=== PATIENT | female | born 1990 | race Caucasian/White ===

== ENCOUNTER 2018-09-19 15:46 | Emergency (ER) | payer MEDICAID ==
[2018-09-19 15:52] VITALS: RESP 16
[2018-09-19] MEDS ORDERED: LORazepam 1 MG TAB PO STA (16:38)
--- NOTE | 2018-09-19 16:43 | ED ---
SOB HPI - General Source: patient, RN notes reviewed Mode of arrival: ambulatory Limitations: no limitations <Bartolome Pratt - Last Filed: 09/19/18 16:52> - General Source: family, RN notes reviewed <Cheo Medrano - Last Filed: 09/19/18 18:41> - General Chief Complaint: Shortness of Breath Stated Complaint: YANIV Time Seen by Provider: 09/19/18 16:22 - History of Present Illness Initial Comments: Patient is a pleasant 28-year-old female presenting to the emergency Department with cough and difficulty breathing. Symptoms have been present for several days. Patient has had nonproductive cough. Patient did have some congestion. Patient did have earache however that has resolved. No chest pain. Patient has had some intermittent fevers. Patient states dyspnea has been intermittent. Patient states dyspnea worsened again around a half an hour prior to arrival. (Bartolome Pratt) Medical decision making; this is a 28-year-old female who as noted in the chief complaint started having flu-type symptoms 5 days ago. She's been on both Tamiflu and a Z-Fernando for past 3 days. She has a past history of anxiety for which she takes trazodone on a when necessary the patient's at night. The patient is working plus going to school. Is under great deal stress. Appears to have had a dry hacking cough that led to hyperventilation with numbness and tingling running lips and hands. Labs and normal limits. D-dimer normal. Chest x-ray reviewed by radiologist does show an ammonia in the superior segment of the left lower lobe. On auscultation of lungs was clear. I discussed with the patient switching from azithromycin to the Levaquin. Patient was advised to stay home from work for at least several days to rest. Anxiety coping routines were explained to the patient (Cheo Medrano) - Related Data Previous Rx's Medication Instructions Recorded Levofloxacin [Levaquin] 500 mg PO DAILY #9 tab 09/19/18 Allergies Allergy/AdvReac Type Severity Reaction Status Date / Time No Known Allergies Allergy Verified 09/19/18 15:52 Review of Systems ROS Other: All systems not noted in ROS Statement are negative. Constitutional: Denies: fever Eyes: Denies: eye pain ENT: Denies: ear pain Respiratory: Reports: cough, dyspnea Cardiovascular: Denies: chest pain Endocrine: Denies: fatigue Gastrointestinal: Denies: abdominal pain Genitourinary: Denies: dysuria Musculoskeletal: Denies: back pain Skin: Denies: rash Neurological: Denies: headache <Bartolome Pratt - Last Filed: 09/19/18 16:52> ROS Other: All systems not noted in ROS Statement are negative. <Cheo Medrano - Last Filed: 09/19/18 18:41> ROS Statement: Those systems with pertinent positive or pertinent negative responses have been documented in the HPI. Review of systems patient denies any headache or visual acuity changes no chest pain she does complain of being short of breath with a dry cough. She also appears to be having some hyperventilation issues. No GI/ problems, patient denies any fever. No significant past medical problems other than anxiety which she for which she takes trazodone at night on a when necessary basis. Patient's surgeries include dental surgery only. Family history includes cancers of breast and esophagus. Patient denies any ALLERGIES nonsmoker, drinks alcohol socially. ( Cheo Medrano) Past Medical History Additional Past Medical History / Comment(s): bronchitis. History of Any Multi-Drug Resistant Organisms: None Reported Past Surgical History: No Surgical Hx Reported Past Psychological History: No Psychological Hx Reported Smoking Status: Never smoker Past Alcohol Use History: None Reported Past Drug Use History: None Reported <Bartolome Pratt - Last Filed: 09/19/18 16:52> General Exam Limitations: no limitations General appearance: alert, in no apparent distress Head exam: Present: atraumatic Eye exam: Present: normal appearance, PERRL ENT exam: Present: normal oropharynx, TM's normal bilaterally Neck exam: Present: normal inspection Respiratory exam: Present: normal lung sounds bilaterally Cardiovascular Exam: Present: regular rate, normal rhythm GI/Abdominal exam: Present: soft. Absent: tenderness Extremities exam: Present: normal inspection. Absent: pedal edema, calf tenderness Neurological exam: Present: alert Psychiatric exam: Present: anxious Skin exam: Present: normal color <Bartolome Pratt - Last Filed: 09/19/18 16:52> <Cheo Medrano - Last Filed: 09/19/18 18:41> - General Exam Comments Initial Comments: General: The patient is awake and alert, patient initially presented hyperventilating. She was given Ativan by Dr. Pratt. After proper 45 minutes to an hour and did seem to help. The patient began to relax. Vital signs showed temperature 90.2 pulse 100 respiratory rate 16 complaint shortness of breath pulse ox on percent room air blood pressure 141/91. Eye: Pupils are equal, round and reactive to light, extra-ocular movements are intact ; there is normal conjunctiva bilaterally. No signs of icterus. Ears, nose, mouth and throat: There are moist mucous membranes and no oral lesions. Neck: The neck is supple, there is no tenderness, no anterior cervical lymphadenopathy , thyroid not enlarged, palpable. Cardiovascular: Tachycardic heart rate of 100. No murmur, rub or gallop is appreciated. Respiratory: Lungs are clear to auscultation, respirations are non-labored, breath sounds are equal. No wheezes, stridor, rales, or rhonchi. Increased respiratory rate secondary to probably anxiety. A dry cough Gastrointestinal: Soft, non-distended, non-tender abdomen without masses or organomegaly noted. There is no rebound or guarding present. No CVA tenderness. Bowel sounds are unremarkable. Back: There is no tenderness to palpation in the midline. There is no obvious deformity. No rashes noted. Musculoskeletal: Normal ROM, no tenderness, There is no pedal edema. There is no calf tenderness or swelling. Sensation intact. Pulses equal bilaterally 2+. Neurological: No neuro deficits Skin: Skin is warm and dry and no rashes or lesions are noted. Psychiatric: Cooperative, past history of mild anxiety and hyperventilation. Prescribed trazodone by her family doctor to help her sleep at night. No complaints of depression. (Cheo Medrano) Course <Bartolome Pratt - Last Filed: 09/19/18 16:52> <Cheo Medrano - Last Filed: 09/19/18 18:41> Vital Signs 09/19/18 09/19/18 15:50 17:52 Temperature 98.2 F Pulse Rate 100 73 Respiratory 16 16 Rate Blood Pressure 141/91 119/74 O2 Sat by Pulse 100 97 Oximetry - Reevaluation(s) Reevaluation #1: 09/19/18 16:44 Influenza testing from 2 days ago is negative 09/19/18 16:44 Case will be endorsed to Dr. Medrano for reevaluation. 09/19/18 16:52 Wells score is 0. Perc negative (Bartolome Pratt) Medical Decision Making - EKG Data -: EKG Interpreted by Me (Normal sinus rhythm 86. TN 112. QRS 112. QT 374. QTC 447. Normal axis.) EKG shows normal: sinus rhythm, QRS complexes (Incomplete right bundle-branch block), ST-T waves <Bartolome Pratt - Last Filed: 09/19/18 16:52> - Lab Data Result diagrams: 09/19/18 17:40 09/19/18 17:40 <Cheo Medrano - Last Filed: 09/19/18 18:41> - Medical Decision Making Medical decision making; is a 28-year-old female who reports she had flu-type symptoms started 5 days ago. States she awakened with a rapid heart rate 160. Saw her family doctor the next day had a flu test done. That same day she was started on Z-Fernando, Tamiflu and Tessalon Perles. The patient reports she does have past history of anxiety issues. And she presents today hyperventilating. The patient states she had a good night last night. Denies fever denies productive cough. Dry hacking cough. Patient had EKG done which showed a heart rate of 86 with normal sinus rhythm with an incomplete right bundle-branch block. Patient was initially seen by Dr. Pratt, he administered Ativan. Chest x-ray was reviewed by radiologist his impression is left lower lobe pneumonia. Normal heart. As read by Dr. Moreno. Patient will have CBC, comp and d-dimer done for further evaluation. Dr. Medrano Labs show white count 6.7 hemoglobin 14 hematocrit of 42 with a potassium 3.8. BUN 12 creatinine 0.71 and GFR greater than 90. Glucose 92. D-dimer normal at 0.4. The patient was feeling much better after the Ativan began affected. She is just generally clearing her throat. We did discuss switching from Z-Fernando to Levaquin to be taken daily for the next 10 days. Strongly advised to stay away from work for several days. If she develops fever chills chest pain to return emergency room. Otherwise follow-up with family physician. (Cheo Medrano) - Lab Data Lab Results 09/19/18 09/19/18 09/19/18 Range/Units 17:40 17:40 17:40 WBC 6.7 (3.8-10.6) k/uL RBC 5.18 (3.80-5.40) m/uL Hgb 14.3 (11.4-16.0) gm/dL Hct 44.4 (34.0-46.0) % MCV 85.8 (80.0-100.0) fL MCH 27.7 (25.0-35.0) pg MCHC 32.3 (31.0-37.0) g/dL RDW 12.5 (11.5-15.5) % Plt Count 231 (150-450) k/uL Neutrophils % 51 % Lymphocytes % 35 % Monocytes % 8 % Eosinophils % 2 % Basophils % 1 % Neutrophils # 3.4 (1.3-7.7) k/uL Lymphocytes # 2.3 (1.0-4.8) k/uL Monocytes # 0.5 (0-1.0) k/uL Eosinophils # 0.1 (0-0.7) k/uL Basophils # 0.0 (0-0.2) k/uL D-Dimer 0.40 (<0.60) mg/L FEU Sodium 144 (137-145) mmol/L Potassium 3.8 (3.5-5.1) mmol/L Chloride 109 H (98-107) mmol/L Carbon Dioxide 21 L (22-30) mmol/L Anion Gap 14 mmol/L BUN 12 (7-17) mg/dL Creatinine 0.71 (0.52-1.04) mg/dL Est GFR (CKD-EPI)AfAm >90 (>60 ml/min/1.73 sqM) Est GFR (CKD-EPI)NonAf >90 (>60 ml/min/1.73 sqM) Glucose 92 (74-99) mg/dL Calcium 10.2 (8.4-10.2) mg/dL Total Bilirubin 0.5 (0.2-1.3) mg/dL AST 25 (14-36) U/L ALT 17 (9-52) U/L Alkaline Phosphatase 63 (38-126) U/L Total Protein 8.2 (6.3-8.2) g/dL Albumin 4.5 (3.5-5.0) g/dL Disposition <Bartolome Pratt - Last Filed: 09/19/18 16:52> Is patient prescribed a controlled substance at d/c from ED?: No Time of Disposition: 18:41 <Cheo Medrano - Last Filed: 09/19/18 18:41> Clinical Impression: Pneumonia, Hyperventilation Disposition: HOME SELF-CARE Condition: Fair Instructions: Community Acquired Pneumonia (ED), Hyperventilation (ED) Additional Instructions: Increase water intake. Use [id number] cough suppressants. Taking medications including trazodone at night as needed. Take Levaquin as directed. Follow-up with your family physician. No work for several days. Prescriptions: Levofloxacin [Levaquin] 500 mg PO DAILY #9 tab Referrals: Desiree Moran DO [Primary Care Provider] - 1-2 days
--- NOTE | 2018-09-19 17:05 | XR ---
EXAMINATION TYPE: XR chest 2V DATE OF EXAM: 09/19/2018 COMPARISON: NONE HISTORY: Short of breath TECHNIQUE: Frontal and lateral views of the chest are obtained. FINDINGS: Heart and mediastinum are normal. There is airspace infiltrate in the superior segment lef t lower lobe. The other lung mathews are clear. Diaphragm is normal. Bony thorax is intact. Pulmonary vascularity is normal. IMPRESSION: Left lower lobe pneumonia. Normal heart.
[2018-09-19 17:49] LABS: Basophils % (A) 1 %; Eosinophils # (A) 0.1 k/uL (0-0.7); Eosinophils % (A) 2 %; HCT 44.4 % (34.0-46.0); HGB 14.3 gm/dL (11.4-16.0); Lymphocytes # (A) 2.3 k/uL (1.0-4.8); Lymphocytes % (A) 35 %; MCH 27.7 pg (25.0-35.0); MCHC 32.3 g/dL (31.0-37.0); MCV 85.8 fL (80.0-100.0); Mean Platelet Volume 7.1; Monocytes # (A) 0.5 k/uL (0-1.0); Monocytes % (A) 8 %; Neutrophils # (A) 3.4 k/uL (1.3-7.7); Neutrophils % (A) 51 %; Platelet Count 231 k/uL (150-450); RBC 5.18 m/uL (3.80-5.40); RDW 12.5 % (11.5-15.5); WBC 6.7 k/uL (3.8-10.6)
[2018-09-19 17:59] LABS: ALT 17 U/L (9-52); AST 25 U/L (14-36); Albumin 4.5 g/dL (3.5-5.0); Alkaline Phosphatase 63 U/L (38-126); Anion Gap 14 mmol/L; Blood Urea Nitrogen 12 mg/dL (7-17); Calcium 10.2 mg/dL (8.4-10.2); Carbon Dioxide 21 mmol/L (22-30); Chloride 109 mmol/L (98-107); Glucose 92 mg/dL (74-99); Potassium 3.8 mmol/L (3.5-5.1); Sodium 144 mmol/L (137-145); Total Bilirubin 0.5 mg/dL (0.2-1.3); Total Protein 8.2 g/dL (6.3-8.2)
[2018-09-19] MEDS ORDERED: LEVOFLOXACIN 500 MG TAB PO STA (18:39)
[2018-09-19 19:07] VITALS: BP 131/78; PULSE 88; TEMP 97.7
--- NOTE | 2018-09-19 19:07 | ED ---
Medical Decision Making - Lab Data Result diagrams: 09/19/18 17:40 09/19/18 17:40 Lab Results 09/19/18 09/19/18 09/19/18 Range/Units 17:40 17:40 17:40 WBC 6.7 (3.8-10.6) k/uL RBC 5.18 (3.80-5.40) m/uL Hgb 14.3 (11.4-16.0) gm/dL Hct 44.4 (34.0-46.0) % MCV 85.8 (80.0-100.0) fL MCH 27.7 (25.0-35.0) pg MCHC 32.3 (31.0-37.0) g/dL RDW 12.5 (11.5-15.5) % Plt Count 231 (150-450) k/uL Neutrophils % 51 % Lymphocytes % 35 % Monocytes % 8 % Eosinophils % 2 % Basophils % 1 % Neutrophils # 3.4 (1.3-7.7) k/uL Lymphocytes # 2.3 (1.0-4.8) k/uL Monocytes # 0.5 (0-1.0) k/uL Eosinophils # 0.1 (0-0.7) k/uL Basophils # 0.0 (0-0.2) k/uL D-Dimer 0.40 (<0.60) mg/L FEU Sodium 144 (137-145) mmol/L Potassium 3.8 (3.5-5.1) mmol/L Chloride 109 H (98-107) mmol/L Carbon Dioxide 21 L (22-30) mmol/L Anion Gap 14 mmol/L BUN 12 (7-17) mg/dL Creatinine 0.71 (0.52-1.04) mg/dL Est GFR (CKD-EPI)AfAm >90 (>60 ml/min/1.73 sqM) Est GFR (CKD-EPI)NonAf >90 (>60 ml/min/1.73 sqM) Glucose 92 (74-99) mg/dL Calcium 10.2 (8.4-10.2) mg/dL Total Bilirubin 0.5 (0.2-1.3) mg/dL AST 25 (14-36) U/L ALT 17 (9-52) U/L Alkaline Phosphatase 63 (38-126) U/L Total Protein 8.2 (6.3-8.2) g/dL Albumin 4.5 (3.5-5.0) g/dL Disposition Clinical Impression: Pneumonia, Hyperventilation Disposition: HOME SELF-CARE Condition: Fair Instructions: Hyperventilation (ED), Community Acquired Pneumonia (ED) Additional Instructions: Increase water intake. Use [id number] cough suppressants. Taking medications including trazodone at night as needed. Take Levaquin as directed. Follow-up with your family physician. No work for several days. Prescriptions: Levofloxacin [Levaquin] 500 mg PO DAILY #9 tab Is patient prescribed a controlled substance at d/c from ED?: No Referrals: Desiree Moran DO [Primary Care Provider] - 1-2 days Time of Disposition: 01:27
== END 2018-09-19 19:08 | disposition home or self-care (01) ==
LOC: EC 15:46 → MERGE 15:46 → EC 19:08
DX: J18.9 Pneumonia, unspecified organism (principal); R06.4 Hyperventilation; I45.10 Unspecified right bundle-branch block
CPT/HCPCS: 36415; 71046; 80053; 85025; 85379; 93005; 99285

== ENCOUNTER 2019-02-25 15:47 | Emergency (ER) | payer MEDICAID ==
[2019-02-25 16:55] LABS: Basophils % (A) 0 %; Eosinophils # (A) 0.1 k/uL (0-0.7); Eosinophils % (A) 1 %; Lymphocytes # (A) 1.4 k/uL (1.0-4.8); Lymphocytes % (A) 11 %; MCH 28.6 pg (25.0-35.0); MCHC 33.4 g/dL (31.0-37.0); MCV 85.6 fL (80.0-100.0); Mean Platelet Volume 7.2; Monocytes # (A) 0.5 k/uL (0-1.0); Monocytes % (A) 4 %; Neutrophils # (A) 10.2 k/uL (1.3-7.7); Neutrophils % (A) 83 %; Platelet Count 254 k/uL (150-450); RDW 12.6 % (11.5-15.5); WBC 12.3 k/uL (3.8-10.6)
[2019-02-25] MEDS ORDERED: SODIUM CHLORIDE 0.9% 1,000 ML IV STA (16:58)
[2019-02-25] MEDS ORDERED: KETOROLAC 30 MG/ML 1 ML VIAL IVP STA (16:58)
[2019-02-25] MEDS ORDERED: ONDANSETRON 4 MG/2 ML VIAL IVP STA (16:59)
--- NOTE | 2019-02-25 17:02 | ED ---
General Adult HPI - General Chief complaint: Abdominal Pain Stated complaint: Left flank pain, nausea Time Seen by Provider: 02/25/19 16:26 Source: patient, RN notes reviewed Mode of arrival: ambulatory Limitations: no limitations - History of Present Illness Initial comments: 28-year-old female presents to the emergency department for a chief of left f lank pain times one day. Patient states this started earlier this morning. .states the pain radiates into the left abdomen. States it is sharp and stabbing in nature. Patient states this feels like a kidney stone. States she has had these in the past on the right side. States that she did see her primary care provider earlier today and has an ultrasound scheduled in 2 weeks. However pain worsens so she presented to the emergency department. States she is nauseous and vomiting. Denies any hit the . States she is having pain with urination as well. Denies fevers or chills. Patient has no other complaints at this time including shortness of breath, chest pain, headache, or visual changes. - Related Data Previous Rx's Medication Instructions Recorded Levofloxacin [Levaquin] 500 mg PO DAILY #9 tab 09/19/18 Allergies Allergy/AdvReac Type Severity Reaction Status Date / Time No Known Allergies Allergy Verified 02/25/19 16:20 Review of Systems ROS Statement: Those systems with pertinent positive or pertinent negative responses have been documented in the HPI. ROS Other: All systems not noted in ROS Statement are negative. Past Medical History Additional Past Medical History / Comment(s): bronchitis. History of Any Multi-Drug Resistant Organisms: None Reported Past Surgical History: No Surgical Hx Reported Past Psychological History: No Psychological Hx Reported Smoking Status: Never smoker Past Alcohol Use History: None Reported Past Drug Use History: None Reported General Exam Limitations: no limitations General appearance: alert, in no apparent distress Head exam: Present: atraumatic, normocephalic, normal inspection Eye exam: Present: normal appearance, PERRL, EOMI. Absent: scleral icterus, conjunctival injection, periorbital swelling ENT exam: Present: normal exam, mucous membranes moist Neck exam: Present: normal inspection, full ROM. Absent: tenderness, meningismus, lymphadenopathy Respiratory exam: Present: normal lung sounds bilaterally. Absent: respiratory distress, wheezes, rales, rhonchi, stridor Cardiovascular Exam: Present: regular rate, normal rhythm, normal heart sounds. Absent: systolic murmur, diastolic murmur, rubs, gallop, clicks GI/Abdominal exam: Present: soft, normal bowel sounds. Absent: distended, tenderness, guarding, rebound, rigid Back exam: Present: CVA tenderness (L) Neurological exam: Present: alert, oriented X3, CN II-XII intact Psychiatric exam: Present: normal affect, normal mood Course Vital Signs 02/25/19 16:19 Temperature 97.8 F Pulse Rate 68 Respiratory 20 Rate Blood Pressure 117/67 O2 Sat by Pulse 100 Oximetry Medical Decision Making - Medical Decision Making 28-year-old female presents to the emergency department for chief complaint of left flank pain times one day. States this started earlier this morning. The pain is radiating into her left abdomen. States it is sharp and stabbing in nature. Has had a kidney stone in the past and this feels similar. On exam patient does have some left CVA tenderness. CBC shows a white count of 12.6, urine shows 2+ ketones with greater than 182 red blood cells. Patient given a liter of fluids. Patient given medication that much better at this time. Ultrasound shows no acute process. There is a minimally prominent upper collecting system but no mina hydronephrosis. She may have passed a kidney stone. Patient does have Toradol, Zofran, and Flomax at a pharmacy by her primary care provider. She will follow up with her urologist. She'll return here if she has any worsening symptoms. - Lab Data Result diagrams: 02/25/19 16:38 02/25/19 16:38 Lab Results 02/25/19 02/25/19 02/25/19 Range/Units 16:38 16:38 16:38 WBC 12.3 H (3.8-10.6) k/uL RBC 4.90 (3.80-5.40) m/uL Hgb 14.0 (11.4-16.0) gm/dL Hct 42.0 (34.0-46.0) % MCV 85.6 (80.0-100.0) fL MCH 28.6 (25.0-35.0) pg MCHC 33.4 (31.0-37.0) g/dL RDW 12.6 (11.5-15.5) % Plt Count 254 (150-450) k/uL Neutrophils % 83 % Lymphocytes % 11 % Monocytes % 4 % Eosinophils % 1 % Basophils % 0 % Neutrophils # 10.2 H (1.3-7.7) k/uL Lymphocytes # 1.4 (1.0-4.8) k/uL Monocytes # 0.5 (0-1.0) k/uL Eosinophils # 0.1 (0-0.7) k/uL Basophils # 0.0 (0-0.2) k/uL Sodium 140 (137-145) mmol/L Potassium 3.8 (3.5-5.1) mmol/L Chloride 106 (98-107) mmol/L Carbon Dioxide 24 (22-30) mmol/L Anion Gap 10 mmol/L BUN 14 (7-17) mg/dL Creatinine 0.79 (0.52-1.04) mg/dL Est GFR (CKD-EPI)AfAm >90 (>60 ml/min/1.73 sqM) Est GFR (CKD-EPI)NonAf >90 (>60 ml/min/1.73 sqM) Glucose 104 H (74-99) mg/dL Calcium 10.1 (8.4-10.2) mg/dL Total Bilirubin 0.7 (0.2-1.3) mg/dL AST 23 (14-36) U/L ALT 15 (9-52) U/L Alkaline Phosphatase 83 (38-126) U/L Total Protein 8.1 (6.3-8.2) g/dL Albumin 4.7 (3.5-5.0) g/dL Amylase 85 (30-110) U/L Lipase 126 (23-300) U/L Urine Color Urine Appearance (Clear) Urine pH (5.0-8.0) Ur Specific [place] (1.001-1.035) Urine Protein (Negative) Urine Glucose (UA) (Negative) Urine Ketones (Negative) Urine Blood (Negative) Urine Nitrite (Negative) Urine Bilirubin (Negative) Urine Urobilinogen (<2.0) mg/dL Ur Leukocyte Esterase (Negative) Urine RBC (0-5) /hpf Urine WBC (0-5) /hpf Ur Squamous Epith Cells (0-4) /hpf Urine Bacteria (None) /hpf Urine Mucus (None) /hpf Urine HCG, Qual Not Detected (Not Detectd) 05/23/19 Range/Units 16:38 WBC (3.8-10.6) k/uL RBC (3.80-5.40) m/uL Hgb (11.4-16.0) gm/dL Hct (34.0-46.0) % MCV (80.0-100.0) fL MCH (25.0-35.0) pg MCHC (31.0-37.0) g/dL RDW (11.5-15.5) % Plt Count (150-450) k/uL Neutrophils % % Lymphocytes % % Monocytes % % Eosinophils % % Basophils % % Neutrophils # (1.3-7.7) k/uL Lymphocytes # (1.0-4.8) k/uL Monocytes # (0-1.0) k/uL Eosinophils # (0-0.7) k/uL Basophils # (0-0.2) k/uL Sodium (137-145) mmol/L Potassium (3.5-5.1) mmol/L Chloride (98-107) mmol/L Carbon Dioxide (22-30) mmol/L Anion Gap mmol/L BUN (7-17) mg/dL Creatinine (0.52-1.04) mg/dL Est GFR (CKD-EPI)AfAm (>60 ml/min/1.73 sqM) Est GFR (CKD-EPI)NonAf (>60 ml/min/1.73 sqM) Glucose (74-99) mg/dL Calcium (8.4-10.2) mg/dL Total Bilirubin (0.2-1.3) mg/dL AST (14-36) U/L ALT (9-52) U/L Alkaline Phosphatase (38-126) U/L Total Protein (6.3-8.2) g/dL Albumin (3.5-5.0) g/dL Amylase (30-110) U/L Lipase (23-300) U/L Urine Color Yellow Urine Appearance Cloudy H (Clear) Urine pH 7.0 (5.0-8.0) Ur Specific [place] 1.045 H (1.001-1.035) Urine Protein 1+ H (Negative) Urine Glucose (UA) Negative (Negative) Urine Ketones 2+ H (Negative) Urine Blood Moderate H (Negative) Urine Nitrite Negative (Negative) Urine Bilirubin Negative (Negative) Urine Urobilinogen 2.0 (<2.0) mg/dL Ur Leukocyte Esterase Negative (Negative) Urine RBC >182 H (0-5) /hpf Urine WBC 5 (0-5) /hpf Ur Squamous Epith Cells 7 H (0-4) /hpf Urine Bacteria Occasional H (None) /hpf Urine Mucus Moderate H (None) /hpf Urine HCG, Qual (Not Detectd) Disposition Clinical Impression: Renal colic on left side Disposition: HOME SELF-CARE Condition: Good Instructions (If sedation given, give patient instructions): Kidney Stones (ED), Renal Colic (ED) Additional Instructions: Please take her medication as given by her primary care provider. Please follow-up with primary care in 1-2 days. Return here if you are having any worsening symptoms. Is patient prescribed a controlled substance at d/c from ED?: No Referrals: Desiree Moran DO [Primary Care Provider] - 1-2 days Jan Kuo MD [STAFF PHYSICIAN] - 1-2 days Time of Disposition: 19:10
[2019-02-25 17:07] LABS: Appearance,Urine Cloudy (Clear); Bacteria,Urine Occasional /hpf; Bilirubin,Urine Negative (Negative); Blood,Urine Moderate (Negative); Color,Urine Yellow; Glucose,Urine (UA) Negative (Negative); Ketones,Urine 2+ (Negative); Leukocyte Esterase,Urine Negative (Negative); Mucus,Urine Moderate /hpf; Nitrite,Urine Negative (Negative); Protein,Urine 1+ (Negative); RBC,Urine >182 /hpf (0-5); Specific Gravity,Urine 1.045 (1.001-1.035); Squamous Epithelial Cell,Urine 7 /hpf (0-4); WBC,Urine 5 /hpf (0-5)
[2019-02-25 17:09] LABS: ALT 15 U/L (9-52); AST 23 U/L (14-36); Albumin 4.7 g/dL (3.5-5.0); Alkaline Phosphatase 83 U/L (38-126); Amylase 85 U/L (30-110); Anion Gap 10 mmol/L; Blood Urea Nitrogen 14 mg/dL (7-17); Calcium 10.1 mg/dL (8.4-10.2); Carbon Dioxide 24 mmol/L (22-30); Chloride 106 mmol/L (98-107); Glucose 104 mg/dL (74-99); Lipase 126 U/L (23-300); Potassium 3.8 mmol/L (3.5-5.1); Sodium 140 mmol/L (137-145); Total Bilirubin 0.7 mg/dL (0.2-1.3); Total Protein 8.1 g/dL (6.3-8.2)
--- NOTE | 2019-02-25 18:29 | US ---
EXAMINATION TYPE: US kidneys/renal and bladder DATE OF EXAM: 02/25/2019 COMPARISON: CT 2011 CLINICAL HISTORY: Pain. Pain left side x 1 day. Hx kidney stone. Hematuria. EXAM MEASUREMENTS: Right Kidney: 11.6 x 5.4 x 3.9 cm Left Kidney: 11.9 x 6.0 x 5.5 cm Post Void Residual Volume: Not performed Right Kidney: No hydronephrosis or masses seen Left Kidney: Minimally prominent upper collecting system but no mina hydronephrosis. No focal findin gs. Bladder: appears wnl Bilateral Jets seen: left jet seen IMPRESSION: No acute process.
[2019-02-25 20:15] VITALS: BP 136/78; PULSE 93; RESP 16; TEMP 97.9
== END 2019-02-25 20:24 | disposition home or self-care (01) ==
LOC: EC 15:47
DX: N23 Unspecified renal colic (principal)
CPT/HCPCS: 36415; 80053; 82150; 83690; 85025; 81001; 81025; 76770; 99284; 96374; 96375; 96361; J2405; J1885

== ENCOUNTER → 2019-03-09 | Outpatient (CLI) | payer MEDICAID ==
--- NOTE | 2019-03-10 07:28 | US ---
EXAMINATION TYPE: US kidneys/renal and bladder DATE OF EXAM: 03/09/2019 COMPARISON: US 02/25/2019 CLINICAL HISTORY: Left Flank Pain R10.12, R39.15 Urgency of urinatio. EXAM MEASUREMENTS: Right Kidney: 11.9 x 3.7 x 4.8 cm Left Kidney: 12.0 x 4.9 x 6.0 cm Right Kidney: No hydronephrosis or masses seen Left Kidney: No hydronephrosis or masses seen Bladder: wnl Bilateral Jets seen: Yes There is no evidence for hydronephrosis at this point in time. No nephrolithiasis is seen. No dave s are identified. The urinary bladder is anechoic. Bilateral ureteral jets are seen. IMPRESSION: No hydronephrosis or nephrolithiasis. The minimally prominent upper collecting system on the left see n on the prior ultrasound of 02/25/2019 was transient and no longer present.
== END | disposition home or self-care (01) ==
LOC: RADUSWWP 16:08
PROVIDERS: ATTEND Family Medicine
DX: R10.12 Left upper quadrant pain (principal); R39.15 Urgency of urination; Z87.442 Personal history of urinary calculi
CPT/HCPCS: 76770

== ENCOUNTER → 2020-07-03 | Outpatient (CLI) | payer MEDICAID ==
--- NOTE | 2020-07-03 15:00 | US ---
EXAMINATION TYPE: US abdomen complete DATE OF EXAM: 07/03/2020 COMPARISON: CLINICAL HISTORY: R19.0 Abdominal Pain. RUQ/Right flank pain. EXAM MEASUREMENTS: Liver Length: 16.9 cm Gallbladder Wall: 0.2 cm CBD: 0.4 cm Spleen: 8.6 cm Right Kidney: 10.7 x 5.1 x 3.7 cm Left Kidney: 10.8 x 4.2 x 4.7 cm Pancreas: wnl Liver: wnl Gallbladder: wnl Evidence for sonographic Reese's sign: neg CBD: wnl Spleen: limited visualization due to overlying bowel gas Right Kidney: No hydronephrosis or masses seen Left Kidney: No hydronephrosis or masses seen Upper IVC: wnl Abd Aorta: no AAA visualized IMPRESSION: 1. Normal abdomen ultrasound
== END | disposition home or self-care (01) ==
LOC: RADUSWWP 14:30
PROVIDERS: ATTEND Family Medicine
DX: R10.9 Unspecified abdominal pain (principal)
CPT/HCPCS: 76700